=== PATIENT | female | born 1955 | race Caucasian/White ===

== ENCOUNTER 2016-11-10 16:24 | Emergency (ER) | payer OTHER ==
[~2016-11-10] VITALS: Ht 165.1 cm; Wt 72.5 kg
[~2016-11-10 16:24] MED LIST: SIMV5TAB50 PO
[2016-11-10 16:27] VITALS: Ht 165.1 cm; Wt 72.5 kg
[2016-11-10] MEDS ORDERED: ACETAMINOPHEN 500 MG TAB PO STA (18:26)
[2016-11-10] MEDS ORDERED: DIPHTH/TET/ACEL PERTUSS (ADULT) 0.5 ML VIAL IM* ONE (18:30)
[2016-11-10] MEDS ORDERED: IBUP-1542 PO (19:47)
[2016-11-10] MEDS ORDERED: CEPH-443 PO (19:47)
--- NOTE | 2016-11-10 19:56 | ERD ---
ER Documentation Chief Complaint Date/Time DATE: 11/10/16 TIME: 19:50 Chief Complaint To room with complaint of a lac to finger HPI This is a 60 year-old female who presents the emergency department today complaining of a laceration to her left hand. Patient states she was cutting celery today at home and cut her finger. States that she does not know when her last tetanus shot was. Denies any fevers or chills, previous trauma. ROS All systems reviewed and are negative except as per history of present illness. Medications Home Meds Active Scripts Ibuprofen* (Motrin*) 600 Mg Tab, 600 MG PO Q6, #30 TAB Prov:YELITZA LUNDY PA-C 11/10/16 Cephalexin* (Keflex*) 500 Mg Capsule, 500 MG PO QID for 7 Days, CAP Prov:YELITZA LUNDY PA-C 11/10/16 Reported Medications Simvastatin* (Simvastatin*) 5 Mg Tablet, 5 MG PO QHS, #30 TAB 04/28/15 Allergies Allergies: Coded Allergies: No Known Allergy (Unverified , 04/28/15) PMhx/Soc Medical and Surgical Hx: pt denies Surgical Hx History of Surgery: No Anesthesia Reaction: No Hx Neurological Disorder: No Hx Respiratory Disorders: No Hx Cardiac Disorders: Yes (HIGH CHOL) Hx Psychiatric Problems: No Hx Miscellaneous Medical Probl: No Hx Alcohol Use: Yes (OCCASIONALLY) Hx Substance Use: No Hx Tobacco Use: No Smoking Status: Never smoker Physical Exam Vitals Vital Signs Date Time Temp Pulse Resp B/P Pulse Ox O2 Delivery O2 Flow Rate FiO2 11/10/16 16:27 98.7 83 20 116/68 95 Physical Exam Const: NAD Head: Atraumatic Eyes: Normal Conjunctiva ENT: Normal External Ears, Nose and Mouth. Neck: Full range of motion..~ No meningismus. Resp: Clear to auscultation bilaterally Cardio: Regular rate and rhythm, no murmurs Skin: 0.5 cm superficial laceration left hand second digit MSk: 0.5 m superficial laceration left hand second digit. Full active range of motion. No evidence of tendon involvement. Pulses 2+. Distal neurovascular intact. Good Cap refill. Neur: Awake and alert Psych: Normal Mood and Affect Results 24 hrs Current Medications Medications (Trade) Dose Ordered Sig/Channing Route PRN Reason Start Time Stop Time Status Last Admin Dose Admin Acetaminophen (Tylenol Tab) 500 mg ONCE STAT PO 11/10/16 18:26 11/10/16 18:27 DC 11/10/16 19:16 Diphtheria/ Tetanus/Acell Pertussis (Adacel) 0.5 ml ONCE ONCE IM* 11/10/16 18:30 11/10/16 18:31 DC 11/10/16 19:16 Procedures/MDM This is 60-year-old female presents the emergency department today for a left hand laceration that she sustained earlier this evening after cutting celery in her kitchen. On physical exam patient has a 0.5 cm superficial laceration at the DIP area of her left hand second digit. I explained to the patient that I do not feel that she require sutures at this time. I do feel that the wound will heal well with Dermabond. I explained the risks and benefits and patient agreed to proceed. Patient is afebrile and otherwise well-appearing. She has full active range of motion. Do not feel she requires imaging at this time. Low suspicion for acute fracture dislocation, septic joint or gout. Patient's wound was cleaned in the usual sterile fashion. Patient was also up-to-date on her tetanus vaccine. She was given Tylenol here in the emergency department. She will be given a prescription for Tylenol, Motrin, Keflex for home. She was instructed to return in 48 hours for a wound check or follow-up with her primary care doctor. She was also placed in a splint to help with wound healing. She is distally neurovascularly intact pre-and post splint application. At this time the patient is stable for discharge and outpatient management. Patient should follow up with their PCP in the next 1-2 days. They may return to the emergency department sooner for any persistent or worsening of symptoms. Patient understood and agreed with the plan. Departure Diagnosis: Primary Impression: Laceration Condition: Fair Patient Instructions: Laceration, Extremity (Skin Glue) Referrals: KENDRA KHALIL (PCP) Additional Instructions: Llame al doctor DALY y dallas fredi JUNIE PARA DENTRO DE 1-2 DANIELLE.Dgale a la secretaria que nosotros le instruimos hacer esta junie.Avise o llame si lyons condicin se empeora antes de la junie. Regresa aqui si peor o no mejor. Wound check in 48 hours. Take antibiotics as prescribed. Keep wound clean and dry. Use splint until further evaluation. Take Tylenol and Motrin for pain YELITZA LUNDY PA-C Nov 10, 2016 19:56
[2016-11-10 20:43] VITALS: BP 138/77; PULSE 53; RESP 16; TEMP 98.1
== END 2016-11-10 20:44 | disposition home or self-care (01) ==
LOC: FTE 16:24
DX: S61.211A Laceration without foreign body of left index finger without damage to nail, initial encounter (principal); W26.8XXA Contact with other sharp object(s), not elsewhere classified, initial encounter; Y92.009 Unspecified place in unspecified non-institutional (private) residence as the place of occurrence of the external cause; Z23 Encounter for immunization
CPT/HCPCS: 90471; 90715; Z7502; Z7610